=== PATIENT | female | born 1980 | race Asian ===

== ENCOUNTER 2023-03-31 20:18 | Emergency (ER) | payer BC, OTHER ==
[~2023-03-31] VITALS: Ht 152.4 cm; Wt 51.3 kg
[2023-03-31] MEDS ORDERED: PRED50TA PO (21:17)
--- NOTE | 2023-03-31 21:21 | NUR ---
Patient discharged to home in stable condition. Written and verbal after care instructions given. Patient verbalizes understanding of instruction.
[2023-03-31 21:22] VITALS: BP 131/90
== END 2023-03-31 21:23 | disposition home or self-care (01) ==
LOC: ER 20:21
DX: L25.9 Unspecified contact dermatitis, unspecified cause (principal); Z79.899 Other long term (current) drug therapy